=== PATIENT | female | born 1990 | race Caucasian/White ===

== ENCOUNTER 2017-06-02 06:41 | Inpatient (IN) | payer OTHER ==
[~2017-06-02] VITALS: Ht 172.7 cm; Wt 80.0 kg
[2017-06-02] VITALS (7 sets, daily range): BP systolic 110–113; BP diastolic 56–67; PULSE 74–90; RESP 16–20; TEMP 97.8–98.7; O2SAT 96–100
[2017-06-02] MEDS ORDERED: ONDANSETRON HCL 4 MG/2 ML VIAL ONE (10:16)
[2017-06-02] MEDS ORDERED: CHLORHEXIDINE GLUCONATE 2 % 1 PACK (2 CLOTHS) TOP PRN (10:30)
[2017-06-02] MEDS ORDERED: RESP: ALBUTEROL 2.5 MG/IPRATROPIUM 0.5 MG NEB (PRN) INH (10:30)
[2017-06-02] MEDS ORDERED: MAGNESIUM HYDROXIDE SUSP 30 ML CUP PO PRN (10:30)
[2017-06-02] MEDS ORDERED: SENNOSIDES 8.6 MG TAB PO PRN (10:30)
[2017-06-02] MEDS ORDERED: MISCELLANEOUS NURSING INFORMATION XX SCH (10:30)
[2017-06-02] MEDS ORDERED: LACTULOSE SYRUP 20 GM/30 ML CUP PO PRN (10:30)
[2017-06-02] MEDS ORDERED: ONDANSETRON HCL 4 MG/2 ML VIAL IV PUSH PRN (10:45)
[2017-06-02] MEDS ORDERED: SERT-132 PO (11:02)
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
[2017-06-02] MEDS: ACETAMINOPHEN 325 MG TAB PO PRN (12:09)
[2017-06-02] MEDS: FAMOTIDINE 20 MG/2 ML VIAL IV PUSH SCH ×2 (12:12→21:00)
[2017-06-02] MEDS: SODIUM CHLOR 0.9% 1000 ML INJ 1,000 ML IV SCH ×2 (12:12→22:40)
--- NOTE | 2017-06-02 13:23 | RADRPT ---
EXAM DATE/TIME: 06/02/2017 12:41 [facility] COMPARISON: No previous studies available for comparison. INDICATIONS : Trauma. MEDICAL HISTORY : None. SURGICAL HISTORY : section. Appendectomy. ENCOUNTER: Initial ACUITY: 1 day PAIN SCORE: 5/10 LOCATION: Paraspinal TECHNIQUE: Multiplanar, multisequence MRI examination of the cervical spine was performed. FINDINGS: VERTEBRAE: There is a compression fracture involving the superior endplate of C7 with slight retropulsion of the osseous structures. This contributes to minimal narrowing of the spinal canal and mild narrowing of the right neuroforamina. The adjacent spinal cord is normal in appearance. ALIGNMENT: No evidence of subluxation. CORD: Normal configuration and signal. POST FOSSA: The cerebellar tonsils are normal in position. C2-C3: The thecal sac has a normal configuration. There is no evidence of disc herniation or spinal canal s tenosis. The neural foramina are patent bilaterally. C3-C4: The thecal sac has a normal configuration. There is no evidence of disc herniation or spinal canal s tenosis. The neural foramina are patent bilaterally. C4-C5: The thecal sac has a normal configuration. There is no evidence of disc herniation or spinal canal s tenosis. The neural foramina are patent bilaterally. C5-C6: The thecal sac has a normal configuration. There is no evidence of disc herniation or spinal canal s tenosis. The neural foramina are patent bilaterally. C6-C7: There is mild compression fracture involving the superior endplate of C7 with slight retropulsion of the posterior aspect of the C7 vertebral body contributing to mild narrowing of the spinal canal and mild right-sided neuroforaminal narrowing. No evidence of cord compression. No paraspinal hematoma is seen. C7-T1: The thecal sac has a normal configuration. There is no evidence of disc herniation or spinal canal s tenosis. The neural foramina are patent bilaterally. CONCLUSION: There is compression of the superior endplate of C7 with mild loss of vertebral body height. There is minimal retropulsion of the posterior aspect of C7 contributing to mild narrowing of the spinal shayla l and mild right-sided neuroforaminal narrowing. No evidence of cord compression. No adjacent paraspi nal hematoma is seen.. Chasidy Loredo MD on June 02, 2017 at 13:17 Board Certified Radiologist. This report was verified electronically.
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
[2017-06-02] MEDS: DEXAMETHASONE SOD PHOS 4 MG/ML VIAL IV PUSH SCH ×2 (14:53→18:34)
[2017-06-02] MEDS: SERTRALINE HCL 50 MG TAB PO SCH (18:34)
--- NOTE | 2017-06-02 18:50 | RADRPT ---
EXAM DATE/TIME: 06/02/2017 17:53 [facility] COMPARISON: No previous studies available for comparison. INDICATIONS : Trauma MEDICAL HISTORY : None SURGICAL HISTORY : section. Appendectomy. ENCOUNTER: Initial ACUITY: One day PAIN SCORE: 5/10 LOCATION: Paraspinal TECHNIQUE: Multiplanar multisequence MRI of the thoracic spine was performed. FINDINGS: No thoracic spine fracture is identified. C7 fracture described on cervical spine MRI. There is no ca nal stenosis in the thoracic spine. There is a moderate canal stenosis. The central canal is minimally prominent in the lower thoracic cord predominantly at the level of T7- 8-9-10. No other cord signal abnormalities. CONCLUSION: 1. No thoracic spine fracture. Mild scoliosis. No canal stenosis. 2. 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 Jordan Nieto MD on June 02, 2017 at 18:42 Board Certified Radiologist. This report was verified electronically.
[2017-06-02] MEDS: DOCUSATE SODIUM 50 MG/SENNA 8.6 MG TAB PO SCH (21:00)
[2017-06-02] MEDS: MORPHINE SULFATE 2 MG/ML INJ IV PUSH PRN (22:00)
[2017-06-03] VITALS (8 sets, daily range): BP systolic 97–105; BP diastolic 59–63; PULSE 62–71; RESP 13–18; TEMP 98.1; O2SAT 69–98
[2017-06-03] MEDS: MORPHINE SULFATE 2 MG/ML INJ IV PUSH PRN (01:00)
[2017-06-03] MEDS ORDERED: CHLORHEXIDINE GLUCONATE 2 % 1 PACK (2 CLOTHS) TOP SCH (04:00)
[2017-06-03] MEDS: DEXAMETHASONE SOD PHOS 4 MG/ML VIAL IV PUSH SCH ×3 (05:37→13:00)
[2017-06-03] MEDS: SERTRALINE HCL 50 MG TAB PO SCH (09:03)
[2017-06-03] MEDS: FAMOTIDINE 20 MG/2 ML VIAL IV PUSH SCH (09:03)
[2017-06-03] MEDS: DOCUSATE SODIUM 50 MG/SENNA 8.6 MG TAB PO SCH (09:03)
--- NOTE | 2017-06-03 09:26 | HHI.DCPOC ---
Discharge Care Plan Diagnosis: (1) Cervical spine fracture Your Health Problems Are: Exercise Tolerance Loss of Movements Goals to Promote Your Health * To prevent worsening of your condition and complications * To maintain your health at the optimal level Directions to Meet Your Goals Take your medications as prescribed Follow your dietary instruction Follow activity as directed Keep your appointments as scheduled Take your immunizations and boosters as scheduled If your symptoms worsen call your PCP, if no PCP go to Urgent Care Center or Emergency Room Smoking is Dangerous to Your Health. Avoid second hand smoke Call the 24-hour hour crisis hotline for domestic abuse at Luis Mcmahan MD Jun 03, 2017 09:26
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
[2017-06-03] MEDS: SODIUM CHLOR 0.9% 1000 ML INJ 1,000 ML IV SCH (10:28)
--- NOTE | 2017-06-03 11:12 | RADRPT ---
EXAM DATE/TIME: 06/03/2017 10:30 [facility] COMPARISON: MRI CERVICAL SPINE W/O CONTRAST, June 02, 2017, 12:41. INDICATIONS : Assess for C7 fracture. MEDICAL HISTORY : None. SURGICAL HISTORY : section. Appendectomy. ENCOUNTER: Subsequent ACUITY: 2 days PAIN SCORE: 5/10 LOCATION: Neck. FINDINGS: There is slight compression deformity involving the C7 vertebral body which would be consistent with fracture. There may be mild dorsal retropulsion. There is slight straightening of normal lordosis. No significant spondylolisthesis. No significant abnormal prevertebral swelling. CONCLUSION: C7 fracture Alban Somers MD on June 03, 2017 at 11:08 Board Certified Radiologist. This report was verified electronically.
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
[2017-06-03] MEDS: ACETAMINOPHEN 325 MG TAB PO PRN (13:00)
== END 2017-06-03 13:42 | disposition home or self-care (01) | DRG 552 ==
LOC: N03A 09:48
PROVIDERS: ADMIT Surgery Surgical Critical Care; ATTEND Surgery Surgical Critical Care
DX: S12.600A Unspecified displaced fracture of seventh cervical vertebra, initial encounter for closed fracture (principal); G95.89 Other specified diseases of spinal cord; S06.9X9A Unspecified intracranial injury with loss of consciousness of unspecified duration, initial encounter; R41.3 Other amnesia; V86.69XA Passenger of other special all-terrain or other off-road motor vehicle injured in nontraffic accident, initial encounter; Z87.891 Personal history of nicotine dependence
CPT/HCPCS: 72020; 72141; 72146; 87641; J1100; J2270; J2405; J7030; L0150; L0172